=== PATIENT | female | born 1940 | race Hispanic/Latino ===

== ENCOUNTER 2021-12-04 14:28 | Inpatient (IN) | payer MEDICAID, SELFPAY ==
[~2021-12-04 14:28] MED LIST: Rocuronium Bromide 10 MG/ML (10ML VIAL) ONE
[2021-12-04 14:40] LABS: Actual Bicarbonate (HCO3a) 18.7 mEq/L (22-28); Analyzer IN Cardio ER; Base Excess (BEa) -10.7 mEq/L (-2.0 to +3.0); CO2 Tension 56.3 mmHg (35.0-45.0); Calcium, Ionized (arterial) 1.19 mmol/L (1.12-1.30); Carboxyhemoglobin (COHb) 0.3 gm% (0.0-3.0); Hemoglobin (Hb) 13.8 g/dL (12.0-16.0); O2 Tension (PaO2), arterial 133.7 mmHg (80.0-100.0); Potassium - ABG Lab 3.51 mmol/L (3.70-5.30)
[2021-12-04] MEDS ORDERED: fentaNYL Citrate/PF 2,000 MCG in Sodium Chloride 0.9% 60 ML IV SCH (14:45)
[2021-12-04 14:46] LABS: pH, Arterial 7.14 (7.35-7.45)
[2021-12-04 14:47] LABS: ALV-art Gradient 508.925 mmHg (0-20); Puncture Site RRA
[2021-12-04 14:47] LABS: #Lymphocytes 0.8 thou/uL (1.20-3.40); #Monocytes 0.4 thou/uL (0.11-0.59); #Neutrophils 5.5 thou/uL (1.40-6.50); %Eosinophils 0.3 % (0.0-10.0); %Lymphocytes 12.1 % (21.0-51.0); %Monocytes 5.3 % (0.0-10.0); %Neutrophils 82.3 % (42.0-75.0); Hemoglobin 9.6 g/dL (12.0-16.0); Mean Corpuscular HGB CONC 31.9 g/dL (32.0-36.0); Mean Corpuscular Hemoglobin 32.1 pg (27.0-31.0); Mean Platelet Volume 8.9 fL (7.4-10.4); Platelet Count 150 thou/uL (130-400); RBC Distribution Width 13.9 % (11.5-14.5); Red Blood Cell (RBC) Count 2.99 mill/uL (4.20-5.40); White Blood Cell (WBC) Count 6.7 thou/uL (4.8-10.8)
[2021-12-04] MEDS ORDERED: Norepinephrine 4 MG/4 ML VIAL ONE (14:50)
[2021-12-04 14:52] LABS: Prothrombin Time 15.4 sec (12.0-14.7)
[2021-12-04 14:53] LABS: INR-International Normal Ratio 1.2
[2021-12-04 15:07] LABS: ALT (SGPT) 43 U/L (8-55); AST (SGOT) 59 U/L (5-34); Albumin 3.2 g/dL (3.4-4.8); Alkaline Phosphatase 82 U/L (40-110); Anion Gap 16 mmol/L (10-20); BUN (Urea Nitrogen) 16 mg/dL (9.8-20.1); Bilirubin, Total 0.3 mg/dL (0.2-1.2); CK (CPK) 38 U/L (29-168); Calc. Creatinine Clearance 0 mL/min (70-130); Calcium 7.6 mg/dL (7.8-10.44); Carbon Dioxide 17 mmol/L (23-31); Chloride 115 mmol/L (98-107); Estimated GFR 60; Globulin 2.7 g/dL (2.4-3.5); Glucose 118 mg/dL (83-110); Potassium 3.5 mmol/L (3.5-5.1); Protein, Total 5.9 g/dL (5.8-8.1); Sodium 144 mmol/L (136-145)
[2021-12-04 15:45] LABS: Bilirubin Negative (Negative); Blood, Urine Negative (Negative); Clarity Clear (Clear); Glucose, Urine (Dipstick) Normal (Negative); Ketone, Urine Trace mg/dL (Negative); Leukocyte Negative Leu/uL (Negative); Nitrite Negative (Negative); Protein, Urine (Dipstick) 30 mg/dL (Neg-Trace); RBC/HPF 0-3 HPF (0-3); Specific Gravity, Urine 1.017 (1.002-1.036); Squamous Epithelial 0-3 HPF (0-3); Urobilinogen Normal mg/dL (Less than 2); WBC/HPF 0-3 HPF (0-3)
[2021-12-04 15:46] LABS: Bacteria/HPF Rare-Few HPF (None Seen)
[2021-12-04 16:06] LABS: Actual Bicarbonate (HCO3a) 16.6 mEq/L (22-28); Analyzer IN Cardio ER; Base Excess (BEa) -6.7 mEq/L (-2.0 to +3.0); CO2 Tension 27.7 mmHg (35.0-45.0); Calcium, Ionized (arterial) 1.09 mmol/L (1.12-1.30); Carboxyhemoglobin (COHb) 0.3 gm% (0.0-3.0); Hemoglobin (Hb) 13.4 g/dL (12.0-16.0); O2 Tension (PaO2), arterial 264.2 mmHg (> 60.0); Potassium - ABG Lab 3.69 mmol/L (3.70-5.30)
[2021-12-04 16:07] LABS: ALV-art Gradient 57.675 mmHg (0-20); Puncture Site RRA
[2021-12-04] MEDS ORDERED: Iopamidol 370 76% 100 ML VIAL ONE (16:10)
[2021-12-04 18:04] LABS: SARS-CoV-2 NAA Rapid Test Not Detected (NotDetected)
[2021-12-04 18:14] LABS: Lactic Acid 6.6 mmol/L (0.5-2.2)
[2021-12-04] MEDS ORDERED: Ondansetron PF 4 MG/2 ML Vial IVP PRN (18:40)
[2021-12-04] MEDS ORDERED: Acetaminophen 650 MG Suppository PR PRN (18:40)
[2021-12-04] MEDS ORDERED: Ventilator Sedation Protocol 1 EACH FS ONE (18:40)
[2021-12-04] MEDS ORDERED: Fentanyl BOLUS 250 ML IVPB PRN (19:00)
[2021-12-04] MEDS ORDERED: Morphine 4 MG/ML VIAL SLOW IVP PRN (19:00)
[2021-12-04] MEDS ORDERED: DISCONTINUE PREVIOUS NARCOTIC PAIN MEDICATIONS AND BENZODIAZEPINES FS SCH (19:00)
[2021-12-04] MEDS ORDERED: Propofol BOLUS 1,000 MG/100 ML VIAL IV PRN (19:00)
[2021-12-04] MEDS: Sodium Chloride 0.9% 1,000 ML IV SCH (19:14)
[2021-12-04] MEDS ORDERED: Vancomycin 1 GM in Premix Bag 1 BAG IVPB SCH (19:26)
[2021-12-04 20:21] LABS: Free T4 (Free Thyroxine) 0.83 ng/dL (0.70-1.48); Thyroid Stimulating Hormone 2.754 uIU/mL (0.35-4.94)
[2021-12-04] MEDS: Vancomycin HCl 500 MG in Sodium Chloride 0.9% 100 ML IVPB SCH (20:34)
[2021-12-04] MEDS: Cefepime 1 GM in Sodium Chloride 0.9% 100 ML IVPB SCH (20:34)
[2021-12-04] MEDS ORDERED: NOREPINEPHRINE 8 MG/250 ML-D5W 250 ML IVPB SCH (22:00)
[2021-12-05] MEDS: Propofol 1,000 MG/100 ML VIAL IV PRN ×2 (00:08→15:06)
[2021-12-05] MEDS: Sodium Chloride 0.9% 1,000 ML IV SCH ×2 (03:51→15:06)
[2021-12-05] MEDS: Fentanyl CADD 100 ML IV SCH ×2 (04:06→20:26)
[2021-12-05 05:22] LABS: Lactic Acid 3.3 mmol/L (0.5-2.2)
[2021-12-05 05:41] LABS: #Lymphocytes 2.9 thou/uL (1.20-3.40); #Monocytes 1.1 thou/uL (0.11-0.59); #Neutrophils 9.2 thou/uL (1.40-6.50); %Basophils 0.2 % (0.0-1.0); %Eosinophils 0.1 % (0.0-10.0); %Lymphocytes 22.1 % (21.0-51.0); %Neutrophils 69.6 % (42.0-75.0); Anion Gap 15 mmol/L (10-20); BUN (Urea Nitrogen) 13 mg/dL (9.8-20.1); Calc. Creatinine Clearance 32 mL/min (70-130); Calcium 8.3 mg/dL (7.8-10.44); Carbon Dioxide 19 mmol/L (23-31); Chloride 115 mmol/L (98-107); Estimated GFR 41; Glucose 127 mg/dL (83-110); Hemoglobin 12.2 g/dL (12.0-16.0); Mean Corpuscular HGB CONC 32.9 g/dL (32.0-36.0); Mean Corpuscular Hemoglobin 31.7 pg (27.0-31.0); Mean Corpuscular Volume 96.4 fL (78.0-98.0); Mean Platelet Volume 9.4 fL (7.4-10.4); Platelet Count 222 thou/uL (130-400); Potassium 3.2 mmol/L (3.5-5.1); RBC Distribution Width 13.8 % (11.5-14.5); Red Blood Cell (RBC) Count 3.85 mill/uL (4.20-5.40); Sodium 146 mmol/L (136-145); White Blood Cell (WBC) Count 13.2 thou/uL (4.8-10.8)
[2021-12-05 07:43] LABS: Actual Bicarbonate (HCO3a) 18.1 mEq/L (22-28); Base Excess (BEa) -1.2 mEq/L (-2.0 to +3.0); Calcium, Ionized (arterial) 1.07 mmol/L (1.12-1.30); Carboxyhemoglobin (COHb) 0.2 gm% (0.0-3.0); Hemoglobin (Hb) 12.8 g/dL (12.0-16.0); O2 Tension (PaO2), arterial 109.2 mmHg (> 60.0); Potassium - ABG Lab 2.93 mmol/L (3.70-5.30)
[2021-12-05 07:44] LABS: CO2 Tension 18.9 mmHg (35.0-45.0); Puncture Site RRA
[2021-12-05 07:45] LABS: ALV-art Gradient 152.375 mmHg (0-20)
[2021-12-05] MEDS ORDERED: Enoxaparin Sodium 40 MG/0.4 ML SYRINGE SC SCH (09:00)
[2021-12-05] MEDS: Pantoprazole 40 MG VIAL IVP SCH (09:45)
[2021-12-05] MEDS: methylPREDNISolone Sod Succ 40 MG VIAL IVP SCH ×3 (09:45→23:25)
[2021-12-05] MEDS: Potassium Chloride 20 MEQ in Premix Bag 1 BAG IVPB SCH ×2 (09:46→11:54)
[2021-12-05] MEDS: Midazolam HCl 2 mg/2 ml Vial SLOW IVP PRN (17:09)
[2021-12-05] MEDS: Dextrose 5 %-0.45 % NaCl 1,000 ML IV SCH (17:09)
[2021-12-05] MEDS: Vancomycin HCl 500 MG in Sodium Chloride 0.9% 100 ML IVPB SCH (20:25)
[2021-12-05] MEDS: Cefepime 1 GM in Sodium Chloride 0.9% 100 ML IVPB SCH (20:26)
[2021-12-06 04:34] LABS: Hemoglobin 11.8 g/dL (12.0-16.0); Mean Corpuscular HGB CONC 32.9 g/dL (32.0-36.0); Mean Corpuscular Hemoglobin 32.7 pg (27.0-31.0); Mean Corpuscular Volume 99.5 fL (78.0-98.0); Mean Platelet Volume 9.5 fL (7.4-10.4); Platelet Count 178 thou/uL (130-400); Red Blood Cell (RBC) Count 3.61 mill/uL (4.20-5.40)
[2021-12-06 04:53] LABS: Anion Gap 12 mmol/L (10-20); BUN (Urea Nitrogen) 10 mg/dL (9.8-20.1); Calc. Creatinine Clearance 35 mL/min (70-130); Calcium 8.6 mg/dL (7.8-10.44); Carbon Dioxide 21 mmol/L (23-31); Chloride 113 mmol/L (98-107); Estimated GFR 46; Glucose 189 mg/dL (83-110); Potassium 4.1 mmol/L (3.5-5.1); Sodium 142 mmol/L (136-145)
[2021-12-06] MEDS: Midazolam HCl 2 mg/2 ml Vial SLOW IVP PRN (05:02)
[2021-12-06] MEDS: Propofol 1,000 MG/100 ML VIAL IV PRN (05:49)
[2021-12-06] MEDS: methylPREDNISolone Sod Succ 40 MG VIAL IVP SCH ×3 (05:49→17:21)
[2021-12-06] MEDS: Dextrose 5 %-0.45 % NaCl 1,000 ML IV SCH ×2 (06:06→17:21)
[2021-12-06 06:56] LABS: Actual Bicarbonate (HCO3a) 21.4 mEq/L (22-28); Base Excess (BEa) -6.2 mEq/L (-2.0 to +3.0); CO2 Tension 51.5 mmHg (35.0-45.0); Calcium, Ionized (arterial) 1.25 mmol/L (1.12-1.30); Carboxyhemoglobin (COHb) 0.3 gm% (0.0-3.0); O2 Tension (PaO2), arterial 72.6 mmHg (> 60.0)
[2021-12-06 06:58] LABS: ALV-art Gradient 148.225 mmHg (0-20); Puncture Site RRA; pH, Arterial 7.24 (7.35-7.45)
[2021-12-06] MEDS ORDERED: Sodium Chloride 0.9% 500 ML IV SCH (08:00)
[2021-12-06] MEDS ORDERED: Dextrose 50% Abboject 50 ML SYRINGE SLOW IVP PRN (08:54)
[2021-12-06] MEDS ORDERED: Dextrose 5% in Water 1,000 ML IV PRN (08:54)
[2021-12-06] MEDS ORDERED: HumaLOG 300 UNITS/3 ML VIAL SC PRN (08:54)
[2021-12-06] MEDS: Enoxaparin Sodium 30 MG/0.3 ML SYRINGE SC SCH (08:55)
[2021-12-06] MEDS: Pantoprazole 40 MG VIAL IVP SCH (08:56)
[2021-12-06] MEDS ORDERED: hydrALAZINE 20 MG/ML VIAL SLOW IVP PRN (10:40)
[2021-12-06] MEDS ORDERED: Haloperidol Lactate 5 MG/ML VIAL SLOW IVP SCH (20:30)
[2021-12-06] MEDS: Cefepime 1 GM in Sodium Chloride 0.9% 100 ML IVPB SCH (20:46)
[2021-12-06] MEDS: Vancomycin HCl 500 MG in Sodium Chloride 0.9% 100 ML IVPB SCH (20:53)
[2021-12-06] MEDS: Vancomycin 1 GM in Premix Bag 1 BAG IVPB SCH (21:21)
[2021-12-07] MEDS: methylPREDNISolone Sod Succ 40 MG VIAL IVP SCH ×2 (00:58→05:10)
[2021-12-07 06:35] LABS: Anion Gap 11 mmol/L (10-20); BUN (Urea Nitrogen) 9 mg/dL (9.8-20.1); Calc. Creatinine Clearance 39 mL/min (70-130); Carbon Dioxide 26 mmol/L (23-31); Chloride 108 mmol/L (98-107); Estimated GFR 51; Glucose 144 mg/dL (83-110); Magnesium 2.1 mg/dL (1.6-2.6); Potassium 3.8 mmol/L (3.5-5.1); Sodium 141 mmol/L (136-145)
[2021-12-07 06:58] LABS: #Lymphocytes 0.9 thou/uL (1.20-3.40); #Monocytes 0.4 thou/uL (0.11-0.59); #Neutrophils 11.1 thou/uL (1.40-6.50); %Eosinophils 0.1 % (0.0-10.0); %Lymphocytes 7.5 % (21.0-51.0); %Monocytes 3.2 % (0.0-10.0); %Neutrophils 89.1 % (42.0-75.0); Hemoglobin 12.5 g/dL (12.0-16.0); Mean Corpuscular HGB CONC 32.4 g/dL (32.0-36.0); Mean Corpuscular Hemoglobin 32.1 pg (27.0-31.0); Mean Platelet Volume 10.3 fL (7.4-10.4); Platelet Count 188 thou/uL (130-400); Red Blood Cell (RBC) Count 3.89 mill/uL (4.20-5.40); White Blood Cell (WBC) Count 12.5 thou/uL (4.8-10.8)
[2021-12-07] MEDS: Enoxaparin Sodium 30 MG/0.3 ML SYRINGE SC SCH (08:02)
[2021-12-07] MEDS: Pantoprazole 40 MG VIAL IVP SCH (08:03)
[2021-12-07 10:24] LABS: Potassium, Urine 12.8 mmol/L
[2021-12-07 10:35] LABS: Bilirubin Negative (Negative); Blood, Urine Small (Negative); Glucose, Urine (Dipstick) 250 mg/dL (Negative); Ketone, Urine Negative (Negative); Leukocyte Negative (Negative); Nitrite Negative (Negative); Protein, Urine (Dipstick) Negative (Neg-Trace); Specific Gravity, Urine 1.015 (1.005-1.030); Urobilinogen 0.2 mg/dL (Less than 2)
[2021-12-07 10:37] LABS: Clarity Clear (Clear)
[2021-12-07 10:47] LABS: Bacteria/HPF None Seen HPF (None Seen); RBC/HPF 0-3 HPF (0-3); Squamous Epithelial 0-3 HPF (0-3); WBC/HPF None Seen HPF (0-3)
[2021-12-07 11:35] LABS: Anion Gap 13 mmol/L (10-20); BUN (Urea Nitrogen) 8 mg/dL (9.8-20.1); Calc. Creatinine Clearance 42 mL/min (70-130); Calcium 9.2 mg/dL (7.8-10.44); Carbon Dioxide 27 mmol/L (23-31); Chloride 108 mmol/L (98-107); Estimated GFR 53; Glucose 160 mg/dL (83-110); Potassium 3.3 mmol/L (3.5-5.1); Sodium 145 mmol/L (136-145)
[2021-12-07] MEDS: Cefepime 1 GM in Sodium Chloride 0.9% 100 ML IVPB SCH ×2 (11:40→22:23)
[2021-12-07 13:22] VITALS: BMI 27.1
[2021-12-07] MEDS ORDERED: Lactated Ringer's 1,000 ML IV SCH ×2 (13:30)
[2021-12-07] MEDS ORDERED: Dextrose 5% in Water 1,000 ML IV SCH (13:45)
[2021-12-07 16:46] LABS: Anion Gap 14 mmol/L (10-20); BUN (Urea Nitrogen) 12 mg/dL (9.8-20.1); Calc. Creatinine Clearance 46 mL/min (70-130); Calcium 8.9 mg/dL (7.8-10.44); Carbon Dioxide 27 mmol/L (23-31); Chloride 103 mmol/L (98-107); Estimated GFR 58; Glucose 170 mg/dL (83-110); Sodium 141 mmol/L (136-145)
[2021-12-07 16:48] LABS: Potassium 2.9 mmol/L (3.5-5.1)
[2021-12-07] MEDS ORDERED: Potassium Chloride 20 MEQ in Premix Bag 1 BAG IVPB SCH (17:15)
[2021-12-07] MEDS: Potassium Chloride 20 MEQ TAB PO SCH ×2 (17:38→23:32)
[2021-12-07] MEDS ORDERED: Potassium Chloride 20 MEQ TAB PO SCH (21:00)
[2021-12-07] MEDS: Vancomycin 1 GM in Premix Bag 1 BAG IVPB SCH (21:26)
[2021-12-07] MEDS: Atorvastatin Calcium 40 MG TAB PO SCH (21:26)
[2021-12-07] MEDS: Lisinopril 10 MG TAB PO SCH (21:26)
[2021-12-07 22:23] LABS: Anion Gap 15 mmol/L (10-20); BUN (Urea Nitrogen) 11 mg/dL (9.8-20.1); Calc. Creatinine Clearance 47 mL/min (70-130); Calcium 9.1 mg/dL (7.8-10.44); Carbon Dioxide 25 mmol/L (23-31); Chloride 103 mmol/L (98-107); Estimated GFR 61; Glucose 172 mg/dL (83-110); Potassium 3.1 mmol/L (3.5-5.1); Sodium 140 mmol/L (136-145)
[2021-12-07] MEDS: Acetaminophen 325 MG TAB PO PRN (23:33)
[2021-12-08 04:39] LABS: Anion Gap 16 mmol/L (10-20); BUN (Urea Nitrogen) 12 mg/dL (9.8-20.1); Calc. Creatinine Clearance 58 mL/min (70-130); Calcium 9.3 mg/dL (7.8-10.44); Carbon Dioxide 25 mmol/L (23-31); Chloride 104 mmol/L (98-107); Estimated GFR 78; Glucose 103 mg/dL (83-110); Potassium 3.5 mmol/L (3.5-5.1); Sodium 141 mmol/L (136-145)
[2021-12-08 05:32] LABS: Hemoglobin 14.8 g/dL (12.0-16.0); Mean Corpuscular HGB CONC 32.5 g/dL (32.0-36.0); Mean Corpuscular Hemoglobin 31.1 pg (27.0-31.0); Mean Corpuscular Volume 95.7 fL (78.0-98.0); Mean Platelet Volume 9.8 fL (7.4-10.4); Platelet Count 222 thou/uL (130-400); RBC Distribution Width 13.8 % (11.5-14.5); Red Blood Cell (RBC) Count 4.76 mill/uL (4.20-5.40); White Blood Cell (WBC) Count 11.1 thou/uL (4.8-10.8)
[2021-12-08 05:33] LABS: #Lymphocytes 1.5 thou/uL (1.20-3.40); #Monocytes 0.8 thou/uL (0.11-0.59); #Neutrophils 8.7 thou/uL (1.40-6.50); %Basophils 0.1 % (0.0-1.0); %Eosinophils 0.1 % (0.0-10.0); %Lymphocytes 13.9 % (21.0-51.0); %Monocytes 7.5 % (0.0-10.0); %Neutrophils 78.4 % (42.0-75.0)
[2021-12-08] MEDS: Potassium Chloride 20 MEQ TAB PO SCH ×3 (06:13→18:37)
[2021-12-08] MEDS: Enoxaparin Sodium 30 MG/0.3 ML SYRINGE SC SCH (08:55)
[2021-12-08] MEDS: Pantoprazole 40 MG VIAL IVP SCH (08:55)
[2021-12-08] MEDS: Aspirin Chewable 81 MG TAB PO SCH (08:56)
[2021-12-08] MEDS: Lisinopril 10 MG TAB PO SCH ×2 (08:56→20:54)
[2021-12-08] MEDS: Cefepime 1 GM in Sodium Chloride 0.9% 100 ML IVPB SCH (09:08)
[2021-12-08 10:39] LABS: Urine Total Volume 7125 mL (250-2400)
[2021-12-08] MEDS: Amlodipine 5 MG TAB PO SCH (10:54)
[2021-12-08 10:57] LABS: Urine Total Volume 7125 mL (250-2400)
[2021-12-08] MEDS: Acetaminophen 325 MG TAB PO PRN (10:59)
[2021-12-08 11:04] LABS: Creatinine, Urine Less than 20.00 mg/dL (47-110)
[2021-12-08 11:06] LABS: 24 HR Glucose 7.1 g/24 hr (0.0-0.5); Glucose, Urine (Quantitative) 99 mg/dl (1-15); Potassium, Urine Less than 10.0 mmol/L; Sodium, Urine 115 mmol/L (Not Available); Urea Nitrogen - Urine 101 mg/dL; Urea Nitrogen-24Hr 7.2 g/24 hr (12-20)
[2021-12-08 11:28] LABS: 24 Hr Sodium 83.4 mmol/24h (40-220)
[2021-12-08] MEDS: Atorvastatin Calcium 40 MG TAB PO SCH (20:54)
[2021-12-08] MEDS: Cefdinir 300 MG CAP PO SCH (20:55)
[2021-12-09 04:54] LABS: #Eosinphils 0.1 thou/uL (0.0-0.7); #Lymphocytes 1.7 thou/uL (1.20-3.40); #Monocytes 0.6 thou/uL (0.11-0.59); #Neutrophils 4.5 thou/uL (1.40-6.50); %Basophils 0.2 % (0.0-1.0); %Eosinophils 1.6 % (0.0-10.0); %Lymphocytes 24.2 % (21.0-51.0); %Monocytes 8.2 % (0.0-10.0); %Neutrophils 65.8 % (42.0-75.0); Hemoglobin 15.1 g/dL (12.0-16.0); Mean Corpuscular HGB CONC 31.9 g/dL (32.0-36.0); Mean Platelet Volume 9.3 fL (7.4-10.4); Platelet Count 232 thou/uL (130-400); RBC Distribution Width 14.1 % (11.5-14.5); Red Blood Cell (RBC) Count 4.88 mill/uL (4.20-5.40); White Blood Cell (WBC) Count 6.9 thou/uL (4.8-10.8)
[2021-12-09 05:10] LABS: Anion Gap 13 mmol/L (10-20); BUN (Urea Nitrogen) 20 mg/dL (9.8-20.1); Calc. Creatinine Clearance 46 mL/min (70-130); Calcium 9.8 mg/dL (7.8-10.44); Carbon Dioxide 25 mmol/L (23-31); Chloride 106 mmol/L (98-107); Estimated GFR 73; Glucose 92 mg/dL (83-110); Magnesium 2.2 mg/dL (1.6-2.6); Potassium 4.7 mmol/L (3.5-5.1); Sodium 139 mmol/L (136-145)
[2021-12-09] MEDS: Aspirin Chewable 81 MG TAB PO SCH (09:19)
[2021-12-09] MEDS: Amlodipine 5 MG TAB PO SCH (09:19)
[2021-12-09] MEDS: Cefdinir 300 MG CAP PO SCH (09:19)
[2021-12-09] MEDS: Enoxaparin Sodium 30 MG/0.3 ML SYRINGE SC SCH (09:19)
[2021-12-09] MEDS: Lisinopril 10 MG TAB PO SCH (09:19)
[2021-12-09] MEDS ORDERED: ADENOSINE 60 MG/20 ML VIAL ONE (09:40)
[2021-12-09 17:20] VITALS: BP 134/74; TEMP 98.1
== END 2021-12-09 18:45 | disposition home or self-care (01) | DRG 208 ==
LOC: ERS 14:28 → EDBD 14:28 → CCU 17:19 → 2NO 12-08 11:39
PROVIDERS: ADMIT Internal Medicine; ATTEND Internal Medicine
PROC: 5A1945Z Respiratory Ventilation, 24-96 Consecutive Hours (ICD-10-PCS; principal; 2021-12-04)
PROC: 0BH17EZ Insertion of Endotracheal Airway into Trachea, Via Natural or Artificial Opening (ICD-10-PCS; 2021-12-04)
PROC: 06HY33Z Insertion of Infusion Device into Lower Vein, Percutaneous Approach (ICD-10-PCS; 2021-12-04)
PROC: 3E033XZ Introduction of Vasopressor into Peripheral Vein, Percutaneous Approach (ICD-10-PCS; 2021-12-04)
DX: J96.01 Acute respiratory failure with hypoxia (principal); G93.41 Metabolic encephalopathy; E87.2 Acidosis; N17.9 Acute kidney failure, unspecified; E87.0 Hyperosmolality and hypernatremia; F05 Delirium due to known physiological condition; Z20.822 Contact with and (suspected) exposure to COVID-19; E03.9 Hypothyroidism, unspecified; I10 Essential (primary) hypertension; F32.A Depression, unspecified; E86.9 Volume depletion, unspecified; E87.6 Hypokalemia; F03.90 Unspecified dementia, unspecified severity, without behavioral disturbance, psychotic disturbance, mood disturbance, and anxiety; I49.5 Sick sinus syndrome; E86.0 Dehydration; Z78.1 Physical restraint status; Z79.899 Other long term (current) drug therapy
CPT/HCPCS: 36415; 36416; 36556; 36600; 70450; 70496; 70498; 70551; 71045; 72125; 78452; 80048; 80053; 80202; 81001; 81003; 81015; 82340; 82436; 82550; 82570; 82805; 82945; 83605; 83735; 83880; 83935; 84133; 84300; 84439; 84443; 84484; 84540; 85025; 85027; 85610; 85730; 87040; 87086; 93005; 93010; 93017; 93306; 94002; 94003; 95816; 95819; 95957; 96365; 96366; 96374; 96375; A9500; C9113; J0153; J0360; J0692; J1630; J1650; J2250; J2405; J2704; J2920; J3010; J3370; J3480; J3490; J7030; J7042; J7050; J7070; Q9967